=== PATIENT | male | born 1970 | race Caucasian/White ===

== ENCOUNTER 2019-12-06 12:31 | Emergency (ER) | payer OTHER ==
[~2019-12-06] VITALS: Ht 198.1 cm; Wt 138.3 kg
[2019-12-06 12:40] VITALS: BP_SYST 105
[2019-12-06] MEDS ORDERED: SUCR1TAB PO (12:40)
[2019-12-06] MEDS ORDERED: CYCL-10 PO (12:40)
[2019-12-06] MEDS ORDERED: METF-379 PO (12:40)
[2019-12-06] MEDS ORDERED: [UNRECOGNIZED DRUG - CODE] TP (12:40)
--- NOTE | 2019-12-06 12:40 | NUR ---
PATIENT TO ER #8, ISOLATION, NEGATIVE PRESSURE, MANAGER OF INTERNAL, ABP, SAO2
--- NOTE | 2019-12-06 12:45 | NUR ---
DR CAN AT BEDSIDE TO ASSESS
[2019-12-06] MEDS ORDERED: NS 500 ML IV ONE (13:00)
[2019-12-06] MEDS ORDERED: NACL 0.9% 2,000 ML IV ONE (13:00)
[2019-12-06] MEDS ORDERED: LEVOFLOXACIN 500 MG/D5W 100 ML IV ONE (13:00)
[2019-12-06] MEDS ORDERED: metroNIDAZOLE 500 mg/NS 100 ML IV ONE (13:00)
--- NOTE | 2019-12-06 13:00 | NUR ---
ALERT, CALM, RESP UNLABORED, DIAPHORETIC. C/P ABD PAIN. SENT BY HIS PMD AFTER BEING ASSESSED AT LOCAL ER. UPON ARRIVAL HE STATED HE HAD ABD PAIN AND GALL STONES ST ON MONITOR @ 144, DENIES N/V/D
[2019-12-06 13:24] LABS: BASOPHILS % (AUTO) 0.1 % (0.0-2.0); HEMATOCRIT 44.8 % (36-54); HEMOGLOBIN 15.2 g/dL (14.0-18.0); LYMPHOCYTES # (AUTO) 0.3 K/uL (1.0-5.5); LYMPHOCYTES % (AUTO) 2.8 % (20.5-51.5); MEAN CORPUSCULAR HEMOGLOBIN 30 pg (27-31); MEAN CORPUSCULAR HGB CONC 34 % (32-36); MEAN CORPUSCULAR VOLUME 87 fL (79.0-98.0); MONOCYTES # (AUTO) 0.9 K/uL (0.0-1.0); MONOCYTES % (AUTO) 8.3 % (1.7-9.3); NEUTROPHILS # (AUTO) 9.9 K/uL (1.8-7.7); NEUTROPHILS % (AUTO) 88.8 % (40.0-70.0); PLATELET COUNT (AUTO) 225 K/uL (130-430); RED BLOOD CELL COUNT(AUTO) 5.13 MIL/uL (4.2-6.2); RED CELL DISTRIBUTION WIDTH 13.4 % (9.0-15.0); WHITE BLOOD COUNT (AUTO) 11.2 K/uL (4.8-10.8)
[2019-12-06 13:40] LABS: CALCIUM 8.5 mg/dL (8.4-11.0); CREATININE 1.62 mg/dL (0.55-1.30); POTASSIUM 4.2 mmol/L (3.5-5.1)
[2019-12-06 13:44] LABS: INR 1.2 (0.80-1.20); PROTHROMBIN TIME 11.6 SECS (9.5-12.5)
--- NOTE | 2019-12-06 13:47 | NUR ---
CRITICAL LAB, NP=[id number]
[2019-12-06 13:54] LABS: ALBUMIN 2.8 g/dL (3.4-4.8); TOTAL BILIRUBIN 7.6 mg/dL (0.0-1.0)
[2019-12-06 14:05] LABS: C-REACTIVE PROTEIN QUANT 49.9 mg/dL (0-0.5)
--- NOTE | 2019-12-06 14:23 | NUR ---
ULTRASOUND IN PROGRESS
[2019-12-06 14:53] LABS: FIBRINOGEN > 840 mg/dL (200-400)
[2019-12-06 15:11] LABS: BILIRUBIN,URINE 2+ (NEGATIVE); BLOOD, URINE 1+ (NEGATIVE); GLUCOSE,URINE 3+ (NEGATIVE); KETONES,URINE 2+ (NEGATIVE); LEUKOCYTE ESTERASE ,URINE NEGATIVE (NEGATIVE); NITRITE, URINE NEGATIVE (NEGATIVE); PROTEIN URINE 1+ (NEGATIVE)
[2019-12-06] MEDS ORDERED: INSULIN REGULAR, HUMAN 10 UNITS/0.1 ML INJ IVP ONE (15:15)
[2019-12-06 15:42] LABS: CLARITY/URINE SLIGHTLY HAZY (CLEAR); COLOR,URINE AMBER (YELLOW)
[2019-12-06 16:09] LABS: BACTERIA,URINE FEW /HPF (None Seen); COARSE GRANULAR CASTS,URINE 0-10 /LPF (None Seen); FINE GRANULAR CASTS,URINE 0-10 /LPF (None Seen); MUCUS,URINE None Seen /LPF (None Seen); RBC,URINE 0-3 /HPF (0-3)
--- NOTE | 2019-12-06 17:12 | NUR ---
PT STATES FEELING MUCH BETTER. RESP UNLABORED, SKIN WARM AND DRY. NO CHANGE IN MENTATION. NSR ON MONITOR
--- NOTE | 2019-12-06 17:40 | NUR ---
Patient to be transferred to [facility]. Is being transferred due to higher level of care. Receiving facility has accepting physician and available space. ER physician has signed transfer form. Patient or responsible republican has agreed to transfer and signed form. Patient belongings inventoried and will be sent with patient. Copy of nursing notes, lab reports, EKG, Physicians Orders and X-rays to be sent with patient. Report called to at receiving facility. Receiving physician is ROSIE. ambulance service has been called for transfer. ETA is 1945.
[2019-12-06] MEDS ORDERED: PIPERACILLIN/TAZO 3.375 GM in NS 50 ML IV ONE (17:45)
--- NOTE | 2019-12-06 19:29 | NUR ---
[facility] HAS ACCEPTED THIS PATIENT.
[2019-12-06 19:35] VITALS: BP_SYST 157
--- NOTE | 2019-12-06 19:52 | NUR ---
BS 217. EMT RECEIVED AND IN ROUTE TO [facility]
== END 2019-12-06 19:35 | disposition short-term general hospital (02) ==
LOC: SED 12:31
DX: A41.9 Sepsis, unspecified organism (principal); R65.20 Severe sepsis without septic shock; K80.20 Calculus of gallbladder without cholecystitis without obstruction; E11.9 Type 2 diabetes mellitus without complications; Z79.899 Other long term (current) drug therapy; Z20.828 Contact with and (suspected) exposure to other viral communicable diseases
CPT/HCPCS: 36415; 36600; 71045; 76705; 80053; 81000; 82550; 82728; 82803; 82962; 83605; 83615; 83880; 84484; 85025; 85384; 85610; 85730; 86140; 87040; 87086; 87186; 93005; 96365; 96368; 96375; 99291; J1815; J1956; J3490; J7030; U0003